=== PATIENT | male | born 1975 ===

== ENCOUNTER → 2018-07-26 14:12 | Outpatient (CLI) | payer SELFPAY ==
[2018-08-08 07:34] LABS: Internal QC Validated? YES +Cl - CLEAR BKGD; Monotest Negative (Negative); Monotest POSITIVE (Negative)
[2018-08-08 10:56] LABS: Internal QC Validated? YES +Cl - CLEAR BKGD; Monotest POSITIVE (Negative)
[2018-08-08 10:57] LABS: Internal QC Validated? YES +Cl - CLEAR BKGD; Monotest Negative (Negative)
== END ==
PROVIDERS: Visit Provider Pathology Anatomic Pathology & Clinical Pathology
DX: Z00.00 Encounter for general adult medical examination without abnormal findings (principal)